=== PATIENT | male | born 1950 | race Caucasian/White ===

== ENCOUNTER → 2019-01-04 12:38 | Outpatient (CLI) | payer MEDICARE, SELFPAY ==
[2019-01-04 13:21] LABS: Add Manual Diff / Slide Review NO; Basophils Absolute Auto 0 /uL (0-100); Basophils Percent Auto 0.9 % (0-2); Eosinophils Absolute Auto 0 /uL (0-450); Eosinophils Percent Auto 0.9 % (2-4); Hematocrit 40.9 % (41-53); Hemoglobin 14.2 g/dL (13.5-17.5); Lymphocytes Absolute Auto 1700 /uL (1100-4500); Lymphocytes Percent Auto 34.3 % (25-40); Mean Corpuscular HGB Conc 34.7 % (30-36); Mean Corpuscular Hemoglobin 29.9 PG (26-34); Mean Corpuscular Volume 86.2 fL (80-100); Monocytes Absolute Auto 400 /uL (0-900); Monocytes Percent Auto 8.6 % (3-14); Neutrophils Absolute Auto 2800 /uL (1500-7000); Neutrophils Percent Auto 55.3 % (50-75); Platelet Count 232 X10^3/uL (150-400); Red Blood Cell Count 4.74 X10^6/uL (4.5-5.9); Red Cell Distribution Width 13.1 % (11.6-14.8); White Blood Cell Count 5.1 X10^3/uL (4.5-11.0)
[2019-01-04 14:49] LABS: Alanine Aminotransferase 20 IU/L (<50); Albumin 4.7 g/dL (3.5-5.0); Albumin Globulin Ratio 1.8 (1.0-2.8); Alkaline Phosphatase 51 U/L (38-126); Aspartate Aminotransferase 26 IU/L (17-59); Bilirubin Total 1.2 mg/dL (0.2-1.3); Blood Urea Nitrogen 24 mg/dL (9-20); Calcium 9.9 mg/dL (8.4-10.2); Carbon Dioxide 26 mmol/L (22-32); Chloride 106 mmol/L (98-107); Cholesterol 196 mg/dL (140-199); Estimated Glomerular Filt Rate > 60.0 mL/min (>60); Globulin 2.6 g/dL (1.7-4.1); Glucose 94 mg/dL (80-110); HDL Cholesterol 58 mg/dL (40-60); HEMOLYSIS < 15 (0-50); LDL Cholesterol Calculated 126 mg/dL (<100); Potassium 4.1 mmol/L (3.4-5.1); Sodium 142 mmol/L (137-145); Total Protein 7.3 g/dL (6.3-8.2); Triglycerides 61 mg/dL (35-150)
[2019-01-04 15:20] LABS: Prostate Specific Antigen Scrn 0.973 ng/mL (0.1-4.0)
== END ==
PROVIDERS: Visit Provider Hospitalist
DX: Z00.00 Encounter for general adult medical examination without abnormal findings (principal); Z13.6 Encounter for screening for cardiovascular disorders; E78.5 Hyperlipidemia, unspecified; Z12.5 Encounter for screening for malignant neoplasm of prostate
CPT/HCPCS: 36415; 80053; 80061; 85025; G0103

== ENCOUNTER 2019-03-24 11:48 | Day surgery (SDC) | payer MEDICARE, SELFPAY ==
[2019-03-24] MEDS: SODIUM CHLORIDE 0.9% 1,000 ML 200 ML IV (12:37)
[2019-03-24 12:38] VITALS: BP 125/84; PULSE 80; RESP 16; TEMP 36.9; O2SAT 96; BMI 28.0
--- NOTE | 2019-03-24 13:59 | PM.HP.1 ---
History of Present Illness History of Present Illness Date Patient Seen: 03/24/19 Time Patient Seen: 14:00 Chief complaint: [id number] Narrative: Patient presents for colorectal screening. They had a normal colonoscopy 10 years ago. No personal or family history of colon cancer. On further history denies any recent gastrointestinal symptoms. No nausea, vomiting, abdominal pain, loss of appetite, unexplained weight loss, change in bowel habits, diarrhea, constipation, melena, hematochezia, or bright red blood per rectum. Patient History Family & Social History Family History Father Congestive heart failure Depression Mother No problems noted. Social History: household members spouse Tobacco & Substance use: Smoking Status Never smoker alcohol intake frequency a few times a week Meds Home Medications and Allergies Home Medications Medication Instructions Recorded Confirmed Type TURMERIC EXTRACT (#[facility] 500 mg PO QDAY #0 02/16/12 History TURMERIC) ibuprofen 600 mg PO Q12HP #0 02/16/12 History tadalafil [Cialis] 2.5 mg PO DAILY PRN 03/24/19 03/24/19 History Allergies Allergy/AdvReac Type Severity Reaction Status Date / Time No Known Drug Allergies Allergy Verified 03/24/19 12:25 Review of Systems Review of Systems Narrative: A 10 point review of systems is negative except as noted in the HPI Exam Vital Signs (past 8 hours): - 03/24/19 12:38 Temperature 98.4 F Pulse Rate 80 Respiratory Rate 16 Blood Pressure 125/84 Pulse Oximetry 96 Oxygen Delivery Method Room Air Narrative Exam Narrative: General-no acute distress, well nourished HEENT-moist mucous membranes, no scleral icterus Neck-supple, no lymphadenopathy Chest- non labored respirations, clear to auscultation bilaterally Cardiac-regular rate no peripheral edema Abdomen-soft, nontender, non distended Extremities-warm, well perfused Neurological-alert and oriented, no focal deficits Assessment & Plan Assessment and plan (1) Screening for colon cancer: Current visit: Yes Status: Acute Assessment & Plan narrative: The patient requires colorectal screening and colonoscopy is recommended. Technical details were discussed. Risks, benefits, alternatives explained. Risks including but not limited to myocardial infarction, aspiration, bleeding, pain, missed lesion, incomplete examination, need for further radiographic studies, colonic perforation, and need for major abdominal surgery were discussed. All questions were answered to their satisfaction, and they are in agreement with this plan.
[2019-03-24] MEDS: MIDAZOLAM 5 MG/5 ML VIAL IV (14:05)
[2019-03-24] MEDS: fentaNYL 250 MCG/5 ML INJ IV (14:06)
--- NOTE | 2019-03-24 14:29 | PM.OP.ENDO ---
Operative Date/Time/Diagnoses Date of procedure: 03/24/19 Time of procedure: 14:29 Post-op diagnosis: same Procedure & Clinicians Study performed: Colonoscopy Same procedure as scheduled: Yes Indications: 68-year-old male last colonoscopy was 10 years ago and normal presents for routine screening. Surgeon: Javier Paul Procedure Notes SCOAP/Timeout: Performed Procedure in detail: Patient placed in left lateral decubitus position. Time out was performed. Procedural sedation was administered with Versed and Fentanyl. A rectal exam demonstrated no external hemorrhoids no internal masses. Colonoscopy scope was placed into the rectum and advanced through the colon to the cecum. The ileocecal valve was identified. The scope was then slowly withdrawn examining colon thoroughly in all directions. The colonoscopy was notable for the following 1. Quality of prep excellent 2. No masses or polyps 3. No diverticulosis Scope withdrawal time: 6 Sedation minutes: 19 Specimen(s): none sent Complications: none Impression: Normal colonoscopy Post-procedure Recommendations: Colonscopy in 10 years Disposition: same day surgery
[2019-03-24 14:33] VITALS: BP 116/76; PULSE 76; RESP 14; TEMP 36.3; O2SAT 95
[2019-03-24 14:38] VITALS: BP 121/81; PULSE 70; RESP 16; O2SAT 95
[2019-03-24 14:43] VITALS: BP 120/85; PULSE 74; RESP 16; TEMP 36.3; O2SAT 96
[2019-03-24 15:08] VITALS: BP 122/82; PULSE 77; RESP 16; TEMP 36.4; O2SAT 96
== END 2019-03-24 15:13 | disposition home or self-care (01) ==
PROVIDERS: Visit Provider Surgery
PROC: 0DJD8ZZ Inspection of Lower Intestinal Tract, Via Natural or Artificial Opening Endoscopic (ICD-10-PCS; CPT 45378; principal; 2019-03-24 13:45)
DX: Z12.11 Encounter for screening for malignant neoplasm of colon (principal)
CPT/HCPCS: G0121; 99152; J2250; J3010

== ENCOUNTER → 2019-12-25 14:35 | Outpatient (CLI) | payer MEDICARE, SELFPAY ==
[2019-12-26 11:10] LABS: COVID19 -Nasal RAPID Negative (Negative)
== END ==
PROVIDERS: PCP Family Medicine; Visit Provider Physician Assistant
DX: Z11.59 Encounter for screening for other viral diseases (principal)
CPT/HCPCS: 87635

== ENCOUNTER 2019-12-28 06:32 | Day surgery (SDC) | payer MEDICARE, SELFPAY ==
--- NOTE | 2019-12-27 17:27 | PM.PREOP ---
Pre-operative Note COVID-19 COVID-19 status: Negative Interval Note History & Physical reviewed/Exam performed by Physician: Yes Changes to H&P: No
[2019-12-28] MEDS: PROPARACAINE 0.5% OPHTH SOL 2 DROPS EYE-OP (07:08)
[2019-12-28 07:10] VITALS: BMI 29.1
[2019-12-28] MEDS: CATARACT EYE COMPOUND (10 DROPS/SYRINGE) 3 DROPS EYE-OP (07:14)
[2019-12-28 07:15] VITALS: BP 137/72; PULSE 52; RESP 16; TEMP 36.8; O2SAT 97
--- NOTE | 2019-12-28 07:28 | P.OP_ITS ---
Operative Date/Time/Diagnoses Date of procedure: 12/28/19 Time of procedure: 07:45 Procedure & Clinicians Procedure: Preoperative diagnoses: 1. Complex left advanced nuclear sclerotic and posterior subcapsular and cortical cataract. 2. Need for capsular dye due to poor red reflex. Postoperative diagnoses: 1. Cataract removed by phacoemulsification with placement of posterior chamber intraocular lens and use of capsular dye. Procedure: Phacoemulsification with posterior chamber intraocular lens implant Surgeon: Shayy Sotelo MD Complications: None Specimen: None Implant: ZCBOO+18.0 Blood loss: None Anesthesia: Retrobulbar with monitored standby Description of procedure: Patient presents with a complaint of decreased vision due to cataract which is affecting activities of daily living. He still works part-time as a rehabilitation services counselor. He has had rapid advance of the complete posterior subcapsular cataract obscuring his view both distance and near. There is no red reflex. This will require capsular dye for better visability.The patient wants surgery to improve vision. The patient was taken to the operating room and given IV sedation. A retrobulbar block consisting of 6 cc of 2% xylocaine without epinephrine mixed half and half with 0.5% Marcaine with 1 cc of hyaluronidase added is placed between the medial and lateral 1/3 of the inferior orbital rim. The eye is manually massaged for 30 sec, prepped using Betadine solution, and draped in the usual sterile fashion. Temporal approach was made, a 1 mm side-port incision was made 90? from the proposed clear corneal incision position. Phenylephrine 1.5% mixed with 1% xylocaine 0.2 cc was placed into the anterior chamber. An air bubble was placed followed by Visudyne capsular dye. The excess was removed with BSS. Viscoat followed by Healon was then placed. A 2.6 mm clear incision with a 2.6 mm blade was placed. A 360 degree capsulorrhexis style capsulotomy was then performed with a cystitome needle on a Healon. Hydrodelineation and hydrodissection were performed. The phacoemulsification unit is introduced, and sculpting notice used to groove the central lens. It is then removed in chopping mode. Due to the poor visibility most was done at the iris plane. Extra viscoelastic was required. There was dense peripheral white posterior calves 6 posterior subcapsular changes which were also removed with extra viscoelastic and irrigation aspiration. Epi nucleus is removed with epinuclear mode and irrigation aspiration was used to remove the peripheral cortex. The posterior capsule is polished. The intraocular lens is selected, inspected, power conf irmed, and placed in the posterior chamber. The wound was stromally hydrated and tested for leaks, there was none and it was left sutureless. Vigamox 0.1 cc was placed into the anterior chamber. Kenalog 0.2 cc was placed in the superior subconjunctival space. A drop of antibiotic and was placed and the eye was patched and shielded. The patient was stable and returned to the recovery room in excellent condition. Dictated by: Shayy Sotelo MD Copy to: [facility] Same procedure as scheduled: Yes
[2019-12-28] MEDS: HYALURONATE SODIUM 10 MG/ML SYRINGE INJ ×2 (08:03→08:39)
[2019-12-28] MEDS: BALANCED SALT IRRIG SOLN NO.2 500 ML, EPINEPHrine 1 MG IRR (08:03)
[2019-12-28] MEDS: CHONDROIDTIN/SOD HYALURONATE 1.05 ML SYRINGE INTRAOCULA (08:06)
[2019-12-28] MEDS: PHENYLEPHRINE/LIDOCAINE VIAL (OR) 0.2 ML EYE-OP (08:06)
[2019-12-28] MEDS: MOXIFLOXACIN INJ 5 MG/ML VIAL EYE-OP (08:08)
[2019-12-28] MEDS: TRYPAN BLUE 0.5 ML SYRINGE INJ (08:08)
[2019-12-28] MEDS: TRIAMCINOLONE 50 MG/5 ML VIAL INJ (08:09)
[2019-12-28] MEDS: LIDOCAINE 2% 4 ML, BUPIVACAINE 0.5% (PF) 4 ML, HYALURONIDASE 150 UNIT INJ (08:10)
[2019-12-28] MEDS: ERYTHROMYCIN OPHTH 1 GM OINT 1 APPLIC EYE-LEFT (08:13)
[2019-12-28 08:55] VITALS: BP 127/81; PULSE 60; RESP 12; TEMP 36.9; O2SAT 97
== END 2019-12-28 09:08 | disposition home or self-care (01) ==
LOC: OR 06:36
PROVIDERS: PCP Family Medicine; Referring Provider Ophthalmology; Visit Provider Ophthalmology
PROC: (CPT 66982; principal; 2019-12-28 07:45)
DX: H25.812 Combined forms of age-related cataract, left eye (principal)
CPT/HCPCS: 66982; J0171; J2250; J2704; J3010; J3301; J3470

== ENCOUNTER → 2020-02-13 08:49 | Outpatient (CLI) | payer MEDICARE, SELFPAY ==
[2020-02-13 09:42] LABS: COVID19 -Nasal RAPID Negative (Negative)
== END ==
PROVIDERS: PCP Family Medicine; Visit Provider Physician Assistant
DX: Z01.812 Encounter for preprocedural laboratory examination; Z20.828 Contact with and (suspected) exposure to other viral communicable diseases
CPT/HCPCS: 87635; C9803

== ENCOUNTER 2020-02-14 07:51 | Day surgery (SDC) | payer MEDICARE, SELFPAY ==
[2020-02-14] MEDS: PROPARACAINE 0.5% OPHTH SOL 2 DROPS EYE-OP (08:37)
[2020-02-14] MEDS: CATARACT EYE COMPOUND (10 DROPS/SYRINGE) 3 DROPS EYE-OP (08:42)
[2020-02-14 08:43] VITALS: BP 126/80; PULSE 50; RESP 16; TEMP 36.6; O2SAT 99; BMI 27.7
--- NOTE | 2020-02-14 09:31 | PM.PREOP ---
Pre-operative Note Interval Note History & Physical reviewed/Exam performed by Physician: Yes Changes to H&P: No
--- NOTE | 2020-02-14 09:31 | PM.OP.1 ---
Operative Date/Time/Diagnoses Pre-op diagnosis: Nuclear cataract right eye Procedure & Clinicians Procedure: Cataract Surgery Same procedure as scheduled: Yes Surgeon: Angelo Karimi Anesthesia Type: MAC +/- and Sedation Operative Notes Procedure in detail: Patient brought to the operating suite. Tetracaine drops placed in the right eye. Patient was prepped and draped in sterile manner. Wire lid speculum was placed in the eye. Betadine drops were placed on the eye. This was irrigated. Lidocaine jelly was placed on the eye. A paracentesis port was created with a side-port blade. 0.1 mL 1% preservative free lidocaine was injected into the anterior chamber. The anterior chamber was deepened with viscoelastic. 2.6 mm keratome was used to create a temporal clear corneal incision. Cystotome and Utrata forceps were used to create continuous tear capsulorrhexis. Balanced salt solution was used to hydro dissect the nucleus. The phacoemulsification handpiece was inserted and the nucleus was removed using the stop and chop technique. The irrigation aspiration handpiece was inserted and the remaining cortex was removed. Anterior chamber was deepened with viscoelastic. An Grimaldo ZCB00 intraocular lens with a power of 17.5 was injected into the capsular bag. Irrigation aspiration handpiece was inserted and the remaining viscoelastic was removed. Incision was hydrated with balanced salt solution and found to be leak free with pressure with Weck-Sydni sponges. 0.1 mL Vigamox injected anterior chamber. 0.3 mL Kenalog 10 mg was injected subconjunctivally. Lid speculum was removed. The patient left the operating room in excellent condition. Complications: none Post-operative Condition: stable Disposition: same day surgery
[2020-02-14] MEDS: PHENYLEPHRINE/LIDOCAINE VIAL (OR) 0.2 ML EYE-OP (09:50)
[2020-02-14] MEDS: CHONDROIDTIN/SOD HYALURONATE 1.05 ML SYRINGE INTRAOCULA (09:51)
[2020-02-14] MEDS: TRIAMCINOLONE 50 MG/5 ML VIAL INJ (09:51)
[2020-02-14] MEDS: LIDOCAINE JELLY 2% 5 ML 1 APPLIC TOP (09:51)
[2020-02-14] MEDS: TETRACAINE 0.5% OPHTH DROPS 4 ML 2 DROPS EYE-OP (09:51)
[2020-02-14] MEDS: MOXIFLOXACIN INJ 5 MG/ML VIAL EYE-OP (09:51)
[2020-02-14] MEDS: BALANCED SALT IRRIG SOLN NO.2 500 ML, EPINEPHrine 1 MG IRR (09:52)
[2020-02-14 10:04] VITALS: BP 113/75; PULSE 52; RESP 14; TEMP 36.7; O2SAT 97
--- NOTE | 2020-02-14 10:22 | SUR.PHASEII ---
1010 Stable, drowsy, pleasant. No questions or concerns upon discharge. is a retired RN.
== END 2020-02-14 10:11 | disposition home or self-care (01) ==
PROVIDERS: PCP Family Medicine; Referring Provider Family Medicine; Visit Provider Ophthalmology
PROC: (CPT 66984; principal; 2020-02-14 09:45)
DX: H25.11 Age-related nuclear cataract, right eye (principal)
CPT/HCPCS: 66984; J0171; J2250; J3010; J3301

== ENCOUNTER → 2020-05-11 12:22 | Outpatient (CLI) | payer MEDICARE, SELFPAY ==
[2020-05-11] MEDS: COVID-19 VACC, Ad26(JANSSEN)/PF 0.5 ML IM (12:45)
== END ==
PROVIDERS: PCP Family Medicine; Visit Provider Internal Medicine
DX: Z23 Encounter for immunization (principal)
CPT/HCPCS: 0031A; 91303

== ENCOUNTER → 2022-02-12 08:11 | Outpatient (CLI) | payer MEDICARE, SELFPAY ==
[2022-02-12 09:19] LABS: Add Manual Diff / Slide Review NO; Basophils Absolute Auto 0 /uL (0-100); Basophils Percent Auto 0.6 % (0-2); Eosinophils Absolute Auto 100 /uL (0-450); Eosinophils Percent Auto 1.4 % (2-4); Hematocrit 38.6 % (41-53); Hemoglobin 13.2 g/dL (13.5-17.5); Lymphocytes Absolute Auto 1300 /uL (1100-4500); Lymphocytes Percent Auto 29.3 % (25-40); Mean Corpuscular HGB Conc 34.3 % (30-36); Mean Corpuscular Hemoglobin 29.2 PG (26-34); Mean Corpuscular Volume 85.2 fL (80-100); Monocytes Absolute Auto 300 /uL (0-900); Monocytes Percent Auto 6.4 % (3-14); Neutrophils Absolute Auto 2700 /uL (1500-7000); Neutrophils Percent Auto 62.3 % (50-75); Platelet Count 213 X10^3/uL (150-400); Red Blood Cell Count 4.53 X10^6/uL (4.5-5.9); Red Cell Distribution Width 13.6 % (11.6-14.8); White Blood Cell Count 4.4 X10^3/uL (4.5-11.0)
[2022-02-12 09:38] LABS: Alanine Aminotransferase 22 IU/L (<50); Albumin Globulin Ratio 1.5 (1.0-2.8); Alkaline Phosphatase 66 U/L (38-126); Aspartate Aminotransferase 22 IU/L (17-59); BUN Creatinine Ratio 21.8 (6-22); Bilirubin Total 0.9 mg/dL (0.2-1.3); Blood Urea Nitrogen 19 mg/dL (9-20); Calcium 8.7 mg/dL (8.4-10.2); Carbon Dioxide 30 mmol/L (22-32); Chloride 106 mmol/L (98-107); Cholesterol 191 mg/dL (140-199); Estimated Glomerular Filt Rate > 60 mL/min (>60); Globulin 2.7 g/dL (1.7-4.1); Glucose 96 mg/dL (80-110); HDL Cholesterol 67 mg/dL (40-60); HEMOLYSIS < 15 (0-50); LDL Cholesterol Calculated 115 mg/dL (<100); Potassium 3.8 mmol/L (3.4-5.1); Sodium 141 mmol/L (137-145); Total Protein 6.7 g/dL (6.3-8.2); Triglycerides 47 mg/dL (35-150)
[2022-02-12 10:07] LABS: Prostate Specific Antigen Scrn 1.27 ng/mL (0.1-4.0)
== END ==
PROVIDERS: PCP Family Medicine; Referring Provider Family Medicine; Visit Provider Family Medicine
DX: R35.1 Nocturia (principal); Z12.5 Encounter for screening for malignant neoplasm of prostate; Z13.220 Encounter for screening for lipoid disorders
CPT/HCPCS: 80053; 80061; 85025; G0103